=== PATIENT | female | born 1945 | race African-American/Black ===

== ENCOUNTER 2020-06-12 09:28 | Observation (INO) | payer OTHER ==
[~2020-06-12] VITALS: Ht 165.1 cm; Wt 83.9 kg
[2020-06-12] VITALS (10 sets, daily range): BP systolic 137–156; BP diastolic 57–70
--- NOTE | 2020-06-12 10:11 | EKG ---
[place] [address] ELECTROCARDIOGRAM REPORT Name: DANIELLE JAIR MEDEL Room: [facility]#: [id number] Admission: 06/12/20 Attend Phys: Shelton Stark MD Discharge: Date of : 45 Date of Service: 06/12/20 1006 Report #: [id number] THIS REPORT FOR: //name// [facility] Test Date: 2020-06-12 Test Time: 10:06:48 Pat Name: JAIR MEDEL Department: Room: Gender: F Helmet Binder: : 1945 Requested By: Shelton Stark Order Number: [id number] Lara MD: Shelton Stark Measurements Intervals [place] Rate: 58 P: 63 MT: 168 QRS: 54 QRSD: 100 T: 8 QT: 628 QTc: 618 Interpretive Statements Sinus rhythm Low voltage, precordial leads Consider right ventricular hypertrophy Prolonged QT interval Baseline wander in lead(s) II,III,aVF No previous ECG available for comparison Electronically Signed On 06-12-2020 10:10:56 CDT by Shelton Stark [email or web address] <ELECTRONICALLY SIGNED> By: Shelton Stark MD, [facility] 06/12/20 1010 1006 1006 Shelton Stark MD, [facility] /EPI
[2020-06-12 10:32] LABS: ANION GAP 8 mmol/L (7-16); BUN 15 mg/dL (7-18); CALCIUM 9.1 mg/dL (8.5-10.1); CHLORIDE 104 mmol/L (98-107); CO2 27 mmol/L (21-32); CREATININE 1.2 mg/dL (0.6-1.3); GLUCOSE 100 mg/dL (70-99); POTASSIUM 3.9 mmol/L (3.5-5.1); SODIUM 139 mmol/L (136-145)
[2020-06-12] MEDS ORDERED: PROAIR HFA8.5 GM INH (10:35)
[2020-06-12] MEDS ORDERED: CARDIZEM SR 60M60 MG PO (10:36)
[2020-06-12 10:37] LABS: ALKALINE PHOSPHATASE 90 U/L (46-116); CHOLESTEROL 117 mg/dL (<200); HDL CHOLESTEROL 53 mg/dL (>40); LDL CHOLESTEROL 55 mg/dL (<100); SGOT 33 U/L (15-37); SGPT 21 U/L (30-65); TC:HDL 2.2 Ratio (Not establshd); TOTAL BILIRUBIN 0.5 mg/dL (<0.1-1.0); TOTAL PROTEIN 7.2 g/dL (6.4-8.2); TRIGLYCERIDE 48 mg/dL (<150); VLDL 10 mg/dL (<40)
[2020-06-12] MEDS ORDERED: DULCOLAX STOOL100 M1 PO (10:37)
[2020-06-12] MEDS ORDERED: ILEVRO1.7 ML EA. EYE (10:38)
[2020-06-12] MEDS ORDERED: PROTONIX40 M2 PO (10:38)
[2020-06-12] MEDS ORDERED: HYDROCHLOROTHIA25 M2 PO (10:39)
[2020-06-12 10:40] LABS: SERUM ASSESSMENT Clear
[2020-06-12] MEDS ORDERED: FLONASE 0.05%50 MCG NASAL (10:40)
[2020-06-12 10:41] LABS: HEMATOCRIT 37.8 % (37.0-47.0); HEMOGLOBIN 12.9 gm/dL (12.0-15.0); MCH 30.8 pg (26.0-34.0); MCHC 34.2 g/dL (28.0-37.0); MPV 7.5 fl. (7.2-11.1); RBC 4.2 mil/uL (4.20-5.00); RDW-CV 13.9 % (10.5-14.5)
[2020-06-12] MEDS ORDERED: JARDIANCE25 MG PO (10:41)
[2020-06-12] MEDS ORDERED: ZETIA10 MG PO (10:42)
[2020-06-12] MEDS ORDERED: ACYCLOVIR 200200 MG PO (10:43)
[2020-06-12] MEDS ORDERED: PLAVIX 75 MG TA75 MG PO (10:44)
[2020-06-12] MEDS ORDERED: CRESTOR40 MG PO (10:44)
[2020-06-12] MEDS ORDERED: KLOR-CON 10 ER10 MEQ PO (10:45)
[2020-06-12] MEDS ORDERED: ISOSORBIDE MONO60 M1 PO (10:45)
[2020-06-12] MEDS ORDERED: INTERMEZZO3.5 MG PO (10:46)
[2020-06-12] MEDS ORDERED: NITROSTAT0.4 M1 SUBLING (10:47)
[2020-06-12] MEDS ORDERED: MIRALAX119 GM PO (10:48)
[2020-06-12] MEDS ORDERED: CALTRATE 600 +1 EAC1 PO (10:50)
[2020-06-12 10:51] LABS: APTT 27.1 Seconds (25.0-31.3); INR 1.1; PROTIME 10.9 Seconds (9.20-11.50)
[2020-06-12] MEDS ORDERED: IRON18 M1 PO (10:51)
[2020-06-12] MEDS ORDERED: VITAMIN D310 MC2 PO (10:52)
[2020-06-12] MEDS ORDERED: VITAMIN E1000 UNIT PO (10:54)
[2020-06-12] MEDS ORDERED: B12 ACTIVE1000 MCG PO (10:55)
--- NOTE | 2020-06-12 18:02 | CARD ---
[address] [address] CARDIAC CATH REPORT Name: SHASHI CASHJAIR ANN Room: [address] Ezequiel Abdullahi#: [id number] Admission: 06/12/20 Attend Phys: Shelton Stark MD, F Discharge: Date of : 45 Report #: [id number] THIS REPORT FOR: //name// cc: Louisa Livingston MD, Sequita MD ~ APPROVED REPORT Study performed: 06/12/2020 10:37:13 Patient Details Patient Status: Out-Patient Room #: The patient is a 74 year-old female Event Personnel Shelton Stark Optometrist Assistant, Vandana Cornejo RN Health Worker, Chandler RyanIS Scrub, Hilda Valle RTR Monitor, Glendy Cazares RTR Monitor Procedures Performed Art Access - R femoral artery Left Heart Cath Coronaries, Bypass Grafts DANICA Place w/wo Plasty Single RCA Hemostasis w/ Angioseal Indication Chest pain Risk Factors Hypercholesterolemia, Coronary Artery DiseaseHypertension, Diabetes Previous Procedures/Diagnoses Previous CABGPrevious PCI Admission/Lab Medications/Medications given during procedure Heparin Unfract., Oxygen Nasal cannula 2 l per min, Midazolam (Versed) IV 2 mg, Lidocaine Subcut 18 ml, Fentanyl IV 25 mcg, Midazolam (Versed) IV 1 mg, Heparin IV 7000 units, Heparin IV 1000 units Procedure Narrative The patient was brought electively to the Cardiac Catheterization Laboratory and was prepped and draped in a sterile manner. The right femoral was infiltrated with 2% Lidocaine subcutaneous anesthesia. A [place] 6 FR sheath was inserted into the right femoral artery. Coronary angiography was performed using coronary diagnostic catheters. The right coronary system [place] [address] CARDIAC CATH REPORT Name: SHASHI MEDELJAIR Room: [address] M.R.#: [id number] Admission: 06/12/20 Attend Phys: Shelton Stark MD, F Discharge: Date of : 45 Report #: [id number] a Diagnostic 6 Fr JR 4 catheter. The left coronary system was accessed and visualized with a Diagnostic 6 Fr JL 4 catheter. The left ventricle was accessed and visualized with a Diagnostic 6 Fr Pigtail catheter. Left ventricular/Aortic Valve gradient assessed via catheter pullback. Left ventriculogram was performed in MARK projection. Closure device was deployed with a 6 Fr Angioseal STS 6Fr. The patient tolerated the procedure well and there were no complications associated with the procedure. There was no hematoma. SV grafts were accessed and visualized with a Diagnostic 6 Fr JR 4. HERNANDEZ graft was accessed and visualized using a Diagnostic 6 Fr IM graft. Intraoperative Conscious Sedation Sedation start time: 11:19 Case end Time: 12:18 Fentanyl 75 mcg Versed 4 mg Fluoro Time: 9.0 minutes Dose: DAP 06510 cGycm2 1349 mGy Contrast Type and Amount: Visipaque 210 ml Coronary Angiography The patient's coronary anatomy is right dominant. [place] Artery Percent Stenosis Grafts (Complete if Previous CABG=Yes: Percent Stenosis) HERNANDEZ graft appeared chronically occluded. SVG to the first and second diagonal branch and 2 marginal arteries appeared widely patent. The second SVG to the PDA and PDL of the distal RCA appeared patent, although the distal mentasta coronaries appeared small Diagnostic Cath Left Main 90% distal stenosis LAD 100% mid occlusion and the distal lad filled by collaterals from the rca Circumflex stent in the proximal circumflex appeared chronicall occluded Right Coronary 30% proximal, stent in mid rca had a 90% restenosis, and 80% distal stenosis. Collaterals from the rca filled the lad Left Ventriculography The left ventricular ejection fraction is estimated to be 60-65%. Left ventricular wall motion abnormalities are not present. There [place] [address] CARDIAC CATH REPORT Name: SHASHI MEDELJAIR Room: [address] M.R.#: [id number] Admission: 06/12/20 Attend Phys: Shelton Stark MD, F Discharge: Date of : 45 Report #: [id number] Hemodynamics The aortic pressure is 143/50 mmHg with a mean of 88 mmHg. The left ventricular pressure is 148/10 mmHg with a mean of mmHg. The left ventricular end diastolic pressure is 19 mmHg. There was no gradient across the aortic valve upon pullback. Pullback from the left ventricle to the aorta revealed no gradient across the aortic valve. PCI Technique Lesion Anticoagulation was achieved with Heparin. Patient was preloaded with Plavix. Percutaneous coronary intervention was performed on the mid right coronary artery. The lesion stenosis prior to intervention was 90% with ENEDINA 3 flow. A 6FR JCR 4 100CM Guide Catheter was used to engage the right ostium. A IG: BMW 190cm Interventional Guidewire was used to cross the lesion. BALLOON DILATION A Balloon catheter Trek RX 2.5 X 8 was inserted and inflated up to 18.00atm for 18seconds. Repeat angiography revealed the following post-dilatation results: 80% stenosis. Additional Inflation: 18.00atm for 8seconds. Additional Inflation: 18.00atm for 8seconds. STENT DEPLOYMENT A drug-eluting stent Norris RX Stent 3.0X18mm was inserted and inflated up to 12.00atm for 17seconds. Repeat angiography revealed the following post-stent deployment results: 0% stenosis. Additional Inflation: 18.00atm for 15seconds. Additional Inflation: 20.00atm for 18seconds. Final angiography reveals 0 % stenosis with ENEDINA 3 flow. Conclusion 1. chronic occlusion of the lad than filled by collaterals from the rca 2. stent in the proximal circumflex appeared chronically occluded 3. stent in the mid rca had a 90% stenosis 4. patent SVG to the PDA and ADOLFO branch of the distal rca 5. chronically occluded hernandez graft 6. patent SVG to the first and second diagonal arteries and a jump graft to 2 marginal arteries. 7. LVEF 60-65% 8. successful placement of a drug eluting stent in the rca Recommendations [address] [address] CARDIAC CATH REPORT Name: JAIR POOL Room: [address] M.R.#: [id number] Admission: 06/12/20 Attend Phys: Shelton Stark MD, F Discharge: Date of : 45 Report #: [id number] Cardiac Rehabilitation Referral [facility] <ELECTRONICALLY SIGNED> By: Shelton Stark MD, FACC 06/12/20 180 00 1801Dlei Stark MD, FACC /INF
--- NOTE | 2020-06-12 19:00 | NUR ---
ASSUMED PT CARE AROUND 174 FROM EVENTS MANAGER. ASSESSMENT COMPLETED BY EVENTS MANAGER, VSS. RIGHT GROIN GAUZE BLOOD TINGED. NO C/O PAIN OR DISCOMFORT. RESTING IN BED AT THIS TIME AND RECIEVED LUNCH. WILL CONTINUE TO MONITOR.
[2020-06-13 04:00] VITALS: BP 147/60
[2020-06-13 04:40] LABS: HEMATOCRIT 37.5 % (37.0-47.0); HEMOGLOBIN 12.8 gm/dL (12.0-15.0); MCH 30.7 pg (26.0-34.0); MCHC 34.2 g/dL (28.0-37.0); MCV 89.9 fL (80.0-100.0); MPV 7.6 fl. (7.2-11.1); RBC 4.17 mil/uL (4.20-5.00); RDW-CV 14.1 % (10.5-14.5); WBC 6.5 thou/uL (4.0-11.0)
[2020-06-13 05:03] LABS: CALCIUM 8.7 mg/dL (8.5-10.1); CREATININE 1.1 mg/dL (0.6-1.3); POTASSIUM 3.2 mmol/L (3.5-5.1); TROPONIN-I LEVEL 0.24 ng/mL (<0.06)
[2020-06-13 08:00] VITALS: BP 134/50
[2020-06-13] MEDS ORDERED: ASPIR 8181 MG PO (12:06)
--- NOTE | 2020-06-13 13:28 | EKG ---
[place] [address] ELECTROCARDIOGRAM REPORT Name: SHASHI CASHJAIR ANN Room: [address] M.R.#: [id number] Admission: 06/12/20 Attend Phys: Shelton Stark MD Discharge: Date of : 45 Date of Service: 06/13/20 0311 Report #: [id number] THIS REPORT FOR: //name// [facility] Test Date: 2020-06-13 Test Time: 03:11:18 Pat Name: JAIR MEDEL Department: Room: [address] Gender: F Help Desk Agent: CARMELO : 1945 Requested By: Shelton Stark Order Number: [id number] Reading MD: Shelton Stark Measurements Intervals [place] Rate: 58 P: 78 [place]: 168 QRS: 44 QRSD: 104 T: QT: 477 QTc: 469 Interpretive Statements Sinus bradycardia Probable left atrial enlargement septal infarct, age indeterminate Compared to ECG 06/12/2020 10:06:48 Myocardial infarct finding now present Prolonged QT interval no longer present Electronically Signed On 06-13-2020 13:28:13 CDT by Shelton Stark [email or web address] <ELECTRONICALLY SIGNED> By: Shelton Stark MD, FAC 06/13/20 1328 0 0 Shelton Stark MD, FAC /EPI
--- NOTE | 2020-06-13 14:00 | NUR ---
ASSUMED PT CARE AT 0730. ASSESSMENT COMPLETED CHARTED. ABLE TO MAKE NEEDS KNOWN. NO C/O PAIN OR DISCOMFORT. UP AD ROLANDO. DISCHARGE APPROVED AND WENT OVER WITH PT. IV AND HEART MONITOR REMOVED. RIDE ARRIVED AROUND 1345 AND PT LEFT TO CAR AT 1355. NO COMMENTS, QUESTIONS, OR CONCERNS NOTED.
--- NOTE | 2020-06-16 14:43 | D ---
[address] [address] DISCHARGE SUMMARY Name: SHASHI CASHJAIR ANN Room: [address] Ezequiel Abdullahi#: [id number] Admission: 06/12/20 Attend Phys: Shelton Stark MD, F Discharge: 06/13/20 Date of : 45 Report #: [id number] THIS REPORT FOR: //name// cc: Louisa Livingston MD, Sequita MD ~ THIS REPORT FOR: //name// CC: Shelton Livingston DATE OF SERVICE: 06/13/2020 DISCHARGE DIAGNOSES: 1. Unstable angina. 2. Coronary artery disease. 3. Hypertension. 4. Diabetes. 5. Hyperlipidemia. CONSULTANTS: None. PROCEDURES: Left heart catheterization with placement of a drug-eluting stent in the right coronary artery via the femoral approach. HISTORY OF PRESENT ILLNESS: The patient is a 74-year-old single black female who was brought to the outpatient department to undergo repeat cardiac catheterization. The patient has an extensive past medical history. She apparently had 7-vessel bypass surgery at [facility] in 2006. She has had several stents since that time including stents placed before the surgery in 2004 and the last stent was placed in 2018. Recently, the patient has been having more chest tightness, usually related to activity. She denies any increased shortness of breath. She does note occasional episodes where the heart rate will increase. She did wear a monitor technician last year that showed a 10-beat run of wide complex tachycardia. She recently saw my nurse practitioner who recommended nuclear stress test. The stress test suggest evidence of anterior ischemia. I recommended she undergo repeat cardiac catheterization. PAST MEDICAL HISTORY: Significant for hysterectomy, back surgery, hypertension, diabetes, hyperlipidemia, chronic kidney disease. MEDICATIONS: On admission included clopidogrel, diltiazem, Jardiance, Zetia, hydrochlorothiazide, Imdur, Protonix, potassium, Crestor. ALLERGIES: She [place] [address] DISCHARGE SUMMARY Name: DANIELLE LIZYJAIR ANN Room: [address] M.R.#: [id number] Admission: 06/12/20 Attend Phys: Shelton Stark MD, F Discharge: 06/13/20 Date of : 45 Report #: [id number] PHYSICAL EXAMINATION: GENERAL: Revealed an elderly female, appeared in no distress. VITAL SIGNS: Blood pressure 140/70, pulse 70. CHEST: Clear to auscultation. CARDIOVASCULAR: Regular rate and rhythm. ABDOMEN: Soft. EXTREMITIES: Had no edema. SKIN: Warm, dry. NEUROLOGIC: Nonfocal. LABORATORY WORK: Showed potassium 3.9, BUN 15, creatinine 1.2. Her liver function studies were normal. Cholesterol 117, triglyceride 48, HDL 53, LDL 55. White blood cell count 6.5, hemoglobin 12.8. HOSPITAL COURSE: The patient was brought to the outpatient department. I performed left heart catheterization from the right femoral artery. She tolerated the procedure well. Results showed chronic occlusion of the LAD that filled by collaterals from the right coronary artery. Stent in the proximal circumflex appeared chronically occluded. Stent in the right coronary artery appeared to have a 90% restenosis. There were collaterals from the right coronary that filled the LAD. There was a patent vein graft that went into a small distal branch of the right coronary artery including the PDA and ADOLFO. There was a patent vein graft went to the first and second diagonal branches as well as a jump graft to 2 marginal arteries. The HAMILTON graft appeared chronically occluded. Ejection fraction appeared to be 60-65%. I then placed a drug-eluting stent in the right coronary artery. The results were discussed with the patient. She is felt to have 6 patent vein grafts, although there were 2 small arteries that appeared to be diffusely disease. The HAMILTON graft appeared chronically occluded. The LAD appeared to be filled by collaterals from the right coronary artery. I then suggested placing the stent in the right coronary artery to improve collateral flow. She tolerated the procedure well. An Angio-Seal was placed in the right femoral artery at the end of the procedure. Fortunately, she had no further chest pain, arrhythmias or hematoma of the groin. Prior to discharge, she was ambulating, had no further complaints. She was discharged on her home medications include Plavix 75 mg a day. She was to resume aspirin 81 mg a day, Cardizem CD 240 mg a day, Jardiance, Zetia 10 mg a day, HCTZ 25 mg a day, Imdur 60 mg a day, Protonix 40 mg a day, potassium 1 tablet a day, Crestor 40 mg a day. She was discharged to return to care of Dr. Livingston for routine medical care including management of her diabetes. I plan on seeing her back in [facility]iology Clinic in [place] in 6 weeks for followup. PROGNOSIS: Guarded due to her diffuse coronary artery disease. She was to contact my office if she had recurrent chest pain. At the time of discharge, the patient had a blood pressure 130/60, pulse 60. [address] [address] DISCHARGE SUMMARY Name: JAIR POOL Room: [address] Bradly#: [id number] Admission: 06/12/20 Attend Phys: Shelton Stark MD, F Discharge: 06/13/20 Date of : 45 Report #: [id number] ECG showed a normal sinus rhythm. <ELECTRONICALLY SIGNED> By: Shelton Stark MD, FACC 06/16/20 1443 1149 1211Davitiburcio Stark MD, FACC /nt
== END 2020-06-13 14:05 | disposition home or self-care (01) ==
LOC: M.CL 09:28 → M.TBA-CV 12:50 → M.2W 12:50
PROVIDERS: ADMIT Internal Medicine Cardiovascular Disease; ATTEND Internal Medicine Cardiovascular Disease
DX: I25.110 Atherosclerotic heart disease of native coronary artery with unstable angina pectoris (principal); E78.5 Hyperlipidemia, unspecified; I12.9 Hypertensive chronic kidney disease with stage 1 through stage 4 chronic kidney disease, or unspecified chronic kidney disease; E11.22 Type 2 diabetes mellitus with diabetic chronic kidney disease; N18.9 Chronic kidney disease, unspecified